=== PATIENT | female | born 1940 | race Caucasian/White ===

== ENCOUNTER → 2020-11-22 | Outpatient (CLI) | payer MEDICARE, OTHER ==
[2020-11-22 15:09] VITALS: BP 115/43
== END | disposition home or self-care (01) ==
LOC: SRCNTR 10:39
PROVIDERS: ATTEND Internal Medicine Critical Care Medicine
DX: C85.90 Non-Hodgkin lymphoma, unspecified, unspecified site (principal); J90 Pleural effusion, not elsewhere classified; I31.3 Pericardial effusion (noninflammatory); I10 Essential (primary) hypertension; R60.9 Edema, unspecified
CPT/HCPCS: G0463; Z7500